=== PATIENT | female | born 1990 | race Caucasian/White ===

== ENCOUNTER 2020-05-16 08:50 | Inpatient (IN) | payer BC ==
[~2020-05-16] VITALS: Ht 170.2 cm; Wt 100.0 kg
[2020-05-20] MEDS ORDERED: OXYTOCIN 30U/ 0.9% NaCL 500ML 500 ML IV ONE (20:17)
[2020-05-20] MEDS ORDERED: LACTATED RINGERS 1,000 ML IV SCH (20:17)
[2020-05-20] MEDS ORDERED: OXYTOCIN 30U/ 0.9% NaCL 500ML 500 ML ONE (20:24)
[2020-05-20] MEDS ORDERED: LIDOCAINE 1%, 20ML ONE (20:24)
[2020-05-20] MEDS ORDERED: MISOPROSTOL 25 MCG TABLET ONE (20:24)
[2020-05-20] MEDS: MISOPROSTOL 25 MCG TABLET VG PRN (20:29)
[2020-05-20] MEDS ORDERED: TERBUTALINE 1 MG/ML, 1ML SQ PRN (20:30)
[2020-05-20] MEDS ORDERED: SODIUM CITRATE/CITRIC ACID 30 ML UDC PO PRN (20:30)
[2020-05-20] MEDS ORDERED: ALUMINUM/MAG/SIMETHICONE 30 ML UDC PO PRN (20:30)
[2020-05-20] MEDS ORDERED: TERBUTALINE 1 MG/ML, 1ML IVPush PRN (20:30)
[2020-05-20] MEDS ORDERED: SODIUM CHLORIDE FLUSH 10ML SYR IVF PRN (20:30)
[2020-05-20] MEDS ORDERED: FENTANYL PF 100 MCG/2ML IVPush PRN (20:30)
[2020-05-20] MEDS ORDERED: ONDANSETRON 2MG/ML, 2ML IVPush PRN (20:30)
[2020-05-20] MEDS ORDERED: FENTANYL PF 100 MCG/2ML IV PRN (20:30)
[2020-05-20] MEDS ORDERED: METOCLOPRAMIDE 5 MG/ML, 2ML IVPush PRN (20:30)
[2020-05-20] MEDS ORDERED: CALCIUM CARBONATE 500 MG TAB.CHEW PO PRN (20:30)
[2020-05-20] MEDS ORDERED: D5%-LACTATED RINGERS 1,000 ML IV SCH (21:00)
[2020-05-20 21:08] LABS: BASOPHILS # (AUTO) 0.04 x10^3/uL (0-0.1); BASOPHILS % (AUTO) 1 % (0-1); EOSINOPHILS # (AUTO) 0.08 x10^3/uL (0-0.4); EOSINOPHILS % (AUTO) 1 % (1-7); LYMPHOCYTES # (AUTO) 2.13 x10^3/uL (1-3.4); LYMPHOCYTES % (AUTO) 27 % (22-44); MD NO; MEAN CORPUSCULAR HEMOGLOBIN 31.9 pg (27.0-34.8); MEAN CORPUSCULAR HGB CONC 33.8 g/dL (32.4-35.8); MEAN CORPUSCULAR VOLUME 94.2 fL (80-100); MEAN PLATELET VOLUME 8.5 fL (7.4-10.4); MONOCYTES # (AUTO) 0.49 x10^3/uL (0.2-0.8); MONOCYTES % (AUTO) 6 % (2-9); NEUTROPHILS % (AUTO) 66 % (42-75); PLATELET COUNT 127 x10^3/uL (130-400); RED BLOOD COUNT 4.03 x10^6/uL (3.82-5.3); RED CELL DISTRIBUTION WIDTH 14.5 % (9.6-15.2)
[2020-05-20 21:09] VITALS: BP 112/73
[2020-05-21] MEDS ORDERED: MISOPROSTOL 25 MCG TABLET ONE (00:33)
[2020-05-21] MEDS: MISOPROSTOL 25 MCG TABLET VG PRN (00:37)
[2020-05-21] MEDS ORDERED: OXYTOCIN 30U/ 0.9% NaCL 500ML 500 ML IV PRN (03:59)
[2020-05-21] MEDS ORDERED: LIDOCAINE 1%, 20ML ONE (09:41)
[2020-05-21] MEDS ORDERED: OXYTOCIN 30U/ 0.9% NaCL 500ML 500 ML IV SCH (10:14)
[2020-05-21] MEDS ORDERED: HYDROcodone/APAP 5/325 TABLET PO PRN (10:30)
[2020-05-21] MEDS ORDERED: ACETAMINOPHEN 325 MG TABLET PO PRN (10:30)
[2020-05-21] MEDS ORDERED: MISOPROSTOL 200 MCG TABLET PR PRN (10:30)
[2020-05-21] MEDS ORDERED: BISACODYL 10 MG SUPP PR PRN (10:30)
[2020-05-21] MEDS ORDERED: RHOGAM FROM BLOOD BANK 1 NOTE EA IM/IV ONE (10:30)
[2020-05-21] MEDS ORDERED: ONDANSETRON 2MG/ML, 2ML IV PRN (10:30)
[2020-05-21 11:30] VITALS: BP 112/78
[2020-05-21] MEDS: OXYcodone/APAP 5/325MG TABLET PO PRN ×2 (15:04→19:42)
[2020-05-21 16:00] VITALS: BP 115/78
[2020-05-21 18:20] LABS: BASOPHILS # (AUTO) 0.05 x10^3/uL (0-0.1); BASOPHILS % (AUTO) 0 % (0-1); EOSINOPHILS % (AUTO) 0 % (1-7); LYMPHOCYTES # (AUTO) 1.34 x10^3/uL (1-3.4); LYMPHOCYTES % (AUTO) 10 % (22-44); MD NO; MEAN CORPUSCULAR HEMOGLOBIN 31.4 pg (27.0-34.8); MEAN CORPUSCULAR HGB CONC 32.7 g/dL (32.4-35.8); MEAN CORPUSCULAR VOLUME 96.1 fL (80-100); MEAN PLATELET VOLUME 8.5 fL (7.4-10.4); MONOCYTES # (AUTO) 0.76 x10^3/uL (0.2-0.8); MONOCYTES % (AUTO) 6 % (2-9); NEUTROPHILS # (AUTO) 10.89 x10^3/uL (1.8-6.8); NEUTROPHILS % (AUTO) 84 % (42-75); PLATELET COUNT 129 x10^3/uL (130-400); RED CELL DISTRIBUTION WIDTH 13.9 % (9.6-15.2)
[2020-05-21] MEDS: DOCUSATE 100 MG CAPSULE PO PRN (19:42)
[2020-05-21 20:01] VITALS: BP 106/69
[2020-05-22 00:35] VITALS: BP 102/65
[2020-05-22] MEDS: OXYcodone/APAP 5/325MG TABLET PO PRN ×4 (00:35→14:11)
[2020-05-22 04:45] VITALS: BP 105/72
[2020-05-22 07:40] VITALS: BP 103/66
[2020-05-22] MEDS ORDERED: PRENATAL VIT/IRON/FA 1 EACH TABLET PO SCH (09:00)
[2020-05-22] MEDS: DOCUSATE 100 MG CAPSULE PO PRN (09:13)
[2020-05-22] MEDS ORDERED: OXYC-302 PO (11:55)
[2020-05-22] MEDS ORDERED: DOCU-131 PO (11:55)
== END 2020-05-22 16:30 | disposition home or self-care (01) | DRG 806 ==
LOC: LDIP 05-20 19:40 → 2NW 05-21 11:35
PROVIDERS: ADMIT Obstetrics & Gynecology; ATTEND Obstetrics & Gynecology
PROC: 10E0XZZ Delivery of Products of Conception, External Approach (ICD-10-PCS; principal; 2020-05-21)
PROC: 0UQMXZZ Repair Vulva, External Approach (ICD-10-PCS; 2020-05-21)
PROC: 0UQMXZZ Repair Vulva, External Approach (ICD-10-PCS; 2020-05-21)
DX: O48.0 Post-term pregnancy (principal); O99.12 Other diseases of the blood and blood-forming organs and certain disorders involving the immune mechanism complicating childbirth; Z37.0 Single live birth; D69.59 Other secondary thrombocytopenia; O70.0 First degree perineal laceration during delivery; O71.82 Other specified trauma to perineum and vulva; Z3A.40 40 weeks gestation of pregnancy; Z80.3 Family history of malignant neoplasm of breast
CPT/HCPCS: 36415; 85025; 86592; 86850; 86900; 87635; G0378